=== PATIENT | female | born 1990 | race Hispanic/Latino ===

== ENCOUNTER 2021-11-25 21:03 | Observation (INO) | payer MEDICAID ==
[~2021-11-25] VITALS: Ht 160 cm; Wt 84.0 kg
[2021-11-25 21:05] VITALS: BP 116/79
[2021-11-25 21:48] LABS: APPEARANCE,URINE Cloudy (CLEAR); BILIRUBIN,URINE Negative (NEGATIVE); COLOR,URINE Yellow (YELLOW); GLUCOSE, URINE (UA) Negative (NEGATIVE); KETONES,URINE Negative (NEGATIVE); LEUKOCYTE ESTERASE ,URINE Large (NEGATIVE); NITRATE,URINE Negative (NEGATIVE); OCCULT BLOOD,URINE Negative (NEGATIVE); PROTEIN,URINE Negative (NEGATIVE)
[2021-11-25 21:56] LABS: AMPHET/METH SCREEN,URINE NEGATIVE (NEGATIVE); BACTERIA,URINE Few /HPF (None Seen); BARBITURATE SCREEN, URINE NEGATIVE (NEGATIVE); BENZODIAZEPINES SCREEN,URINE NEGATIVE (NEGATIVE); CANNABINOID SCREEN,URINE POSITIVE (NEGATIVE); COCAINE SCREEN,URINE NEGATIVE (NEGATIVE); OPIATE SCREEN,URINE NEGATIVE (NEGATIVE); PHENCYCLIDINE SCREEN,URINE NEGATIVE (NEGATIVE); RBC,URINE None Seen /HPF (0-1)
[2021-11-25] MEDS: LACTATED RINGERS 1000ML 1,000 ML IV SCH ×2 (22:26→23:21)
[2021-11-25] MEDS ORDERED: LACTATED RINGERS 1000ML IV SCH (23:00)
[2021-11-25] MEDS ORDERED: METRONIDAZOLE 500 MG TABLET PO SCH (23:00)
[2021-11-25] MEDS: TERBUTALINE SULFATE VIAL 1MG/ML SQ PRN (23:21)
[2021-11-26] MEDS: TERBUTALINE SULFATE VIAL 1MG/ML SQ PRN (00:29)
== END 2021-11-26 01:45 | disposition home or self-care (01) ==
LOC: EDH 21:03 → LDH 21:04
PROVIDERS: ADMIT Obstetrics & Gynecology; ATTEND Obstetrics & Gynecology
DX: O26.893 Other specified pregnancy related conditions, third trimester (principal); R10.2 Pelvic and perineal pain; Z3A.27 27 weeks gestation of pregnancy; Z79.899 Other long term (current) drug therapy
CPT/HCPCS: 59025; 80305; 81001; 87088; 96360; 96361 ×3; 96372 ×2; G0378 ×5; G0379; J3105; J7120 ×2

== ENCOUNTER 2022-01-25 13:26 | Observation (INO) | payer MEDICAID ==
[~2022-01-25] VITALS: Ht 160 cm; Wt 87.5 kg
[2022-01-25 13:31] VITALS: BP 121/79
== END 2022-01-25 15:05 | disposition home or self-care (01) ==
LOC: EDH 13:26 → LDH 13:45
PROVIDERS: ADMIT Obstetrics & Gynecology; ATTEND Obstetrics & Gynecology
DX: O36.8130 Decreased fetal movements, third trimester, not applicable or unspecified (principal); Z3A.36 36 weeks gestation of pregnancy
CPT/HCPCS: 59025; 76819; G0378; G0379

== ENCOUNTER 2022-01-30 20:50 | Observation (INO) | payer MEDICAID ==
[~2022-01-30] VITALS: Ht 160 cm; Wt 89.4 kg
[2022-01-30 20:51] VITALS: BP 109/72
[2022-01-30] MEDS ORDERED: LACTATED RINGERS 1000ML 1,000 ML IV SCH (22:00)
[2022-01-30 22:13] LABS: APPEARANCE,URINE CLEAR (CLEAR); BILIRUBIN,URINE NEGATIVE (NEGATIVE); COLOR,URINE YELLOW (YELLOW); GLUCOSE, URINE (UA) NEGATIVE (NEGATIVE); KETONES,URINE NEGATIVE (NEGATIVE); LEUKOCYTE ESTERASE ,URINE SMALL (NEGATIVE); NITRATE,URINE NEGATIVE (NEGATIVE); OCCULT BLOOD,URINE NEGATIVE (NEGATIVE); PROTEIN,URINE NEGATIVE (NEGATIVE)
[2022-01-30 22:20] LABS: AMPHET/METH SCREEN,URINE NEGATIVE (NEGATIVE); BENZODIAZEPINES SCREEN,URINE NEGATIVE (NEGATIVE); CANNABINOID SCREEN,URINE NEGATIVE (NEGATIVE); COCAINE SCREEN,URINE NEGATIVE (NEGATIVE); PHENCYCLIDINE SCREEN,URINE NEGATIVE (NEGATIVE)
[2022-01-30 22:28] LABS: BACTERIA,URINE None Seen /HPF (None Seen); RBC,URINE 0-1 /HPF (0-1); SQUAMOUS EPITHELIAL CELL,UR Moderate /HPF (0-2)
[2022-02-02 10:14] LABS: OPIATES SCREEN URINE Negative ng/mL (Cutoff=300)
[2022-02-08] MEDS ORDERED: PREN1TAB80 PO (20:35)
[2022-02-10] MEDS ORDERED: IBUP-2070 PO (13:23)
[2022-02-10] MEDS ORDERED: FERR-72 PO (14:13)
== END 2022-01-30 23:20 | disposition home or self-care (01) ==
LOC: EDH 20:50 → LDH 20:51
PROVIDERS: ADMIT Obstetrics & Gynecology; ATTEND Obstetrics & Gynecology
DX: O26.893 Other specified pregnancy related conditions, third trimester (principal); R10.2 Pelvic and perineal pain; Z3A.36 36 weeks gestation of pregnancy; Z79.899 Other long term (current) drug therapy
CPT/HCPCS: 59025; 96360; 80305; 81001; G0378 ×2; G0379; J7120

== ENCOUNTER 2022-06-20 13:39 | Emergency (ER) | payer MEDICAID ==
[~2022-06-20 13:39] MED LIST: FERR-72 PO; IBUP-2070 PO; PREN1TAB80 PO
[2022-06-20] MEDS ORDERED: IBUPROFEN 600 MG TABLET PO ONE (14:00)
[2022-06-20] MEDS ORDERED: IBUP-2070 PO (14:40)
== END 2022-06-20 14:53 | disposition home or self-care (01) ==
LOC: EDH 13:39
DX: S92.514A Nondisplaced fracture of proximal phalanx of right lesser toe(s), initial encounter for closed fracture (principal); Y04.8XXA Assault by other bodily force, initial encounter; Y93.89 Activity, other specified; Y92.89 Other specified places as the place of occurrence of the external cause; Y99.8 Other external cause status
CPT/HCPCS: 29130; 73660